=== PATIENT | male | born 1980 | race Caucasian/White ===

== ENCOUNTER → 2019-10-10 | Outpatient (CLI) | payer OTHER ==
[2019-10-10 09:45] LABS: EOS # 0.1 (0.04-0.40); EOS % 1.7 % (0.0-4.0); HEMATOCRIT 44.8 % (42.0-52.0); HEMOGLOBIN 14.9 g/dL (13.5-18.0); LYMPH# 1.3 (1.50-4.00); MEAN CELL VOLUME 93 fl (78-100); MEAN CORPUSCULAR HEMOGLOBIN 31 pg (27-31); MEAN CORPUSCULAR HGB CONC 33 g/dL (33-37); MEAN PLATELET VOLUME 8.6 fl (7.4-10.4); MONO # 0.6 (0.20-0.80); NEU # 3.8 (1.40-6.50); PLATELET COUNT 299 K/mm3 (130-400); RED BLOOD COUNT 4.82 M/mm3 (4.20-5.60); WHITE BLOOD COUNT 5.9 K/mm3 (4.8-10.8)
[2019-10-10 09:48] LABS: POTASSIUM 4.3 mmol/L (3.5-5.1)
[2019-10-10 09:49] LABS: ALBUMIN 4.2 g/dL (3.5-5.0)
[2019-10-10 09:53] LABS: TOTAL BILIRUBIN 0.3 mg/dL (0.2-1.2)
== END ==
LOC: LAB 09:27
PROVIDERS: Physician Assistant
DX: Z02.89 Encounter for other administrative examinations (principal); Z13.220 Encounter for screening for lipoid disorders